=== PATIENT | male | born 1970 | race Caucasian/White ===

== ENCOUNTER 2019-07-16 14:31 | Inpatient (IN) | payer OTHER ==
--- NOTE | 2019-07-16 14:47 | BHS.RME ---
Physical/Psych/Mental Status - Behavior General Behavior: Increased activity (restlessness, agitation) Eye Contact: Normal - Cooperativeness Cooperativeness: Cooperative - Thinking Thought Processes: Tight, Logical, Goal Directed Thought content: Future oriented - Physical Health Problems Is patient presently having any pain?: No Does patient presently have any injuries (include location): No Does patient currently have a fever: No Is patient : No COWS - Scale Resting Pulse: 1= [place] 81-100 Sweatin= Chills/Flushing Restless Observation: 1= Difficult to Sit Still Pupil Size: 1= Pupils >than Normal Bone or Joint Aches: 0= None Runny Nose/ Eye Tearin= None GI Upset > 30mins: 1= Stomach Cramp Tremor Observation: 1= Tremor [place], Not Seen Yawning Observation: 0= None Anxiety or Irritability: 0= None Goose Flesh Skin: 0=Smooth Skin (not yet in withdrawal due to use earlier this morning.) COWS Score: 6
--- NOTE | 2019-07-16 15:03 | HP ---
COWS - Scale Resting Pulse: 1= [place] 81-100 Sweatin= Chills/Flushing Restless Observation: 1= Difficult to Sit Still Pupil Size: 1= Pupils >than Normal Bone or Joint Aches: 0= None Runny Nose/ Eye Tearin= None GI Upset > 30mins: 1= Stomach Cramp Tremor Observation: 1= Tremor [place], Not Seen Yawning Observation: 0= None Anxiety or Irritability: 0= None Goose Flesh Skin: 0=Smooth Skin (not yet in withdrawal due to use earlier this morning.) COWS Score: 6 CIWA Score - Admission Criteria OASAS Guidelines: Admission for Medically Managed Detox: Requires at least one of the followin. CIWA greater than 12 2. Seizures within the past 24 hours 3. Delirium tremens within the past 24 hours 4. Hallucinations within the past 24 hours 5. Acute intervention needed for co occurring medical disorder 6. Acute intervention needed for co occurring psychiatric disorder 7. Severe withdrawal that cannot be handled at a lower level of care (continued vomiting, continued diarrhea, abnormal vital signs) requiring intravenous medication and/or fluids 8. Admitting History and Physical - Admission Chief Complaint: Mr. Fleming is a 48 yo gentleman who presents to [facility] stating "I've been shooting heroin and I'm trying to get off it". He is requesting admission for detox. History of Present Illness: Mr. Fleming is a 48 yo gentleman who presents to [facility] stating "I've been shooting heroin and I'm trying to get off it". He is requesting admission for detox. His last detox was in 2014 when he was incarcerated. He has been on methadone recently, in [place], off since March. Prior Suboxone, none in 2 years. PMH: GERD PSH: left inguinal hernia, 2 esophageal tears 2011, ankle fracture right 2004 psych: attempted suicide in 2004, no SI at this time Legal: none Substance use hx Heroin: one bundle per day, IV, first use age 30 yo, last use 07/15 at 2 am. No hx of OD, No Narcan at home. Nicotine: 1/2 ppd, began at age 20y. Cocaine: $30, IV, first use age 19y, last use a few days ago Admission ROS S - HPI Exam Limitations: No Limitations - Ebola screening Have you traveled outside of the country in the last 21 days: No Have you had contact with anyone from an Ebola affected area: No Have you been sick,other than usual withdrawal symptoms: No Do you have a fever: No - Review of Systems Constitutional: Unintentional Wgt. Loss (lost 5 lbs in 2 weeks) EENT: reports: Blurred Vision (has glasses with him) Respiratory: reports: No Symptoms reported Cardiac: reports: No Symptoms Reported GI: reports: Other (hx GERD, recent diarrhea he attributes to Suboxone) : reports: No Symptoms Reported Musculoskeletal: reports: No Symptoms Reported Integumentary: reports: Dryness Neuro: reports: No Symptoms reported Endocrine: reports: No Symptoms Reported Hematology: reports: No Symptoms Reported Psychiatric: reports: Depressed (no SI) Patient History - Patient Medical History Hx Gastrointestinal Disorders: Yes (GERD) - Patient Surgical History Hx Abdominal Surgery: Yes (left inguinal hernia) Other Surgical History: 2 esophageal tears 2011 - Smoking Cessation Smoking history: Current every day smoker Have you smoked in the past 12 months: Yes Aproximately how many cigarettes per day: 10 Hx Chewing Tobacco Use: No Initiated information on smoking cessation: Yes 'Breaking Loose' booklet given: 07/16/19 - Substance & Tx. History Substance Use Type: Cocaine, Heroin Hx Substance Use Treatment: Yes - Substances abused Heroin Substance route: Injection Amount used: 10 bags Age of first use: 30 Date of last use: 07/16/19 Cocaine Substance route: Injection Frequency: 1-3 times last 30 days Amount used: $30. Age of first use: 19 Date of last use: 07/14/19 Admission Physical Exam S - Vital Signs Vital Signs: Vital Signs - 24 hr 07/16/19 14:54 Temperature 97.6 F Pulse Rate 94 H Respiratory 18 Rate Blood Pressure 135/84 - Physical General Appearance: Yes: Disheveled, Thin, Anxious HEENTM: Yes: Hearing grossly Normal, Normocephalic, Normal Voice Respiratory: Yes: Lungs Clear Neck: Yes: Within Normal Limits Breast: Yes: Breast Exam Deferred Cardiology: Yes: Regular Rate, S1, S2 Abdominal: Yes: Non Tender, Flat, Soft, Decreased BS Genitourinary: Yes: Other (deferred) Back: Yes: Normal Inspection Musculoskeletal: Yes: Within Normal Limits Extremities: Yes: Normal Inspection Neurological: Yes: Alert, Normal Response Integumentary: Yes: Rash (acne on back) Lymphatic: Yes: Within Normal Limits - Diagnostic (1) Opioid dependence with withdrawal Current Visit: Yes Status: Acute (2) Nicotine dependence Current Visit: Yes Status: Acute (3) GERD (gastroesophageal reflux disease) Current Visit: Yes Status: Chronic (4) Depression Current Visit: Yes Status: Chronic Cleared for Admission [facility] - Detox or Rehab [facility] Level of Care: Medically Managed Detox Regimen/Protocol: Methadone Breathalyzer - Breathalyzer Breathalyzer: 0 Urine Drug Screen - Results Urine drug screen results: JOE-Cocaine, FEN-Fentanyl, MOP-Opiates, BUP-Suboxone Inpatient Rehab Admission - Rehab Decision to Admit Inpatient rehab admission?: No
[2019-07-16 15:14] VITALS: BMI 25.0
[2019-07-16] MEDS ORDERED: ONDANSETRON *ODT* 4 MG TABLET SL ONE (15:16)
[2019-07-16] MEDS ORDERED: MAGNESIUM HYDROX 2400MG/30ML ORAL SUSPENSION 30 ML CUP PO PRN (15:16)
[2019-07-16] MEDS ORDERED: ACETAMINOPHEN 325 MG TABLET (FP) PO PRN ×2 (15:16)
[2019-07-16] MEDS ORDERED: BISMUTH SUBSALICYLATE 524 MG/30 ML UD PO PRN (15:16)
[2019-07-16] MEDS ORDERED: MAG HYDROX/AL HYDROX/SIMETH 30 ML UNIT-DOSE CUP PO PRN (15:16)
[2019-07-16] MEDS ORDERED: MAGNESIUM CITRATE 300 ML BOTTLE PO PRN (15:16)
[2019-07-16] MEDS ORDERED: METHADONE HCL 10 MG TABLET (FOR DETOX USE ONLY) PO ONE (15:16)
[2019-07-16] MEDS ORDERED: MENTHOL/PHENOL 1 EACH UD MM PRN (15:16)
[2019-07-16] MEDS: NICOTINE 14 MG/24 HOURS TOPICAL PATCH TD SCH (16:03)
--- NOTE | 2019-07-16 16:55 | CONSULT ---
[facility] Psychiatric Consult - Data Date of interview: 07/16/19 Admission source: [facility] Identifying data: First visit to [facility] and admission to [address] [place] [address] for detoxification treatment. SAVANNAH issues : heroin, cocaine, nicotine. Patient is single, a father of one, homeless, currently unemployed and deprived of financial support. Substance Abuse History: Discussed with the patient. SAVANNAH as follows : Smoking history: Current every day smoker. Have you smoked in the past 12 months: Yes. Aproximately how many cigarettes per day: 10. Hx Chewing Tobacco Use: No. Initiated information on smoking cessation: Yes. 'Breaking Loose' booklet given: 07/16/19. - Substance & Tx. History. Substance Use Type: Cocaine, Heroin. Hx Substance Use Treatment: Yes. - Substances abused. Heroin. Substance route: Injection. Amount used: 10 bags. Age of first use: 30. Date of last use: 07/16/19. Cocaine. Substance route: Injection. Frequency: 1-3 times last 30 days. Amount used: $30. Age of first use: 19. Date of last use: 07/14/19 Medical History: Medical profile is remarkable for GERD, antecedent of two esophageal tears and a history of surgeries (left inguinal herniorraphy + orthosurgery for fracture of right ankle in 2004). Psychiatric History: Patient denies history of psychiatric hospitalizations (only one CPEP visit at [facility] in 1999). Mr Fleming indicates that he has been diagnosed with ADHD and prescribed ritalin during his adolescence. Later in life, he did see psychiatrists who diagnosed him with MDD and Anxiety Disorder (was prescribed duloxetine). Patient admits to chronic non- adherence to medications. He endorses recent maintenance on methadone (130 mg/day) at a MMTP program in [place], [place] (dropped out in March 2019). Patient reports a distant history of suicide attempt via overdose with an hypnotic medication (2004). Physical/Sexual Abuse/Trauma History: Patient denies history of abuse. Current stressors : homelessness, lack of a support network, financial difficulties and opioid addiction. Additional Comment: Urine drug screen results: JOE-Cocaine, FEN-Fentanyl, MOP-Opiates, BUP-Suboxone. Noted. Mental Status Exam - Mental Status Exam Alert and Oriented to: Time, Place, Person Cognitive Function: Good Patient Appearance: Well Groomed Mood: Nervous, Withdrawn Affect: Mood Congruent, Constricted Patient Behavior: Fatigued, Appropriate, Cooperative Speech Pattern: Clear, Appropriate Voice Loudness: Normal Thought Process: Intact, Goal Oriented Thought Disorder: Not Present Hallucinations: Denies Suicidal Ideation: Denies Homicidal Ideation: Denies Insight/Judgement: Poor Sleep: Poorly, Difficulty falling asleep Appetite: Good Gait/Station: Normal Psychiatric Findings - Problem List ([place] 1, 2,3) (1) Opioid dependence with withdrawal Current Visit: Yes Status: Acute (2) Cocaine use disorder Current Visit: Yes Status: Chronic (3) Nicotine dependence Current Visit: Yes Status: Chronic (4) Substance induced mood disorder Current Visit: Yes Status: Chronic (5) History of attention deficit hyperactivity disorder (ADHD) Current Visit: Yes Status: Chronic Comment: As per self-report. Not on medications for several years (since adolescence). (6) History of depression Current Visit: Yes Status: Chronic Comment: Self-report. Has been prescribed duloxetine in the past. (7) Insomnia Current Visit: Yes Status: Chronic (8) Non-compliance Current Visit: Yes Status: Chronic Comment: Patient admits to chronic non- adherence to psychiatric OPD care. Dropped out of methadone maintenance. - Initial Treatment Plan Initial Treatment Plan: Psychoeducation. Sleep hygiene. Detoxification initiated. Support. MAT-opioid services discussed with the patient : he is receptive to teaching and willing to resume MMTP services. NA meetings. Groups. Observation.
[2019-07-16] MEDS: PANTOPRAZOLE 40 MG TABLET PO SCH (17:52)
[2019-07-16] MEDS: hydrOXYzine PAMOATE 25 MG CAPSULE (FP) PO SCH ×2 (17:52→22:12)
[2019-07-16] MEDS: THIAMINE HCL 100 MG TABLET (FP) PO SCH (22:12)
[2019-07-16] MEDS: MELATONIN 5 MG TABLETS PO SCH (22:12)
[2019-07-17] MEDS: IBUPROFEN 400 MG TABLET (FP) PO PRN ×3 (06:21→20:26)
[2019-07-17] MEDS: hydrOXYzine PAMOATE 25 MG CAPSULE (FP) PO SCH ×5 (06:22→22:11)
[2019-07-17] MEDS ORDERED: METHADONE HCL 10 MG TABLET (FOR DETOX USE ONLY) ONE (09:51)
[2019-07-17] MEDS ORDERED: METHADONE HCL 5 MG TABLET (FOR DETOX USE ONLY) ONE (09:52)
[2019-07-17] MEDS ORDERED: METHADONE (DETOX) 20 MG, METHADONE (DETOX) 5 MG PO ONE (10:00)
[2019-07-17] MEDS: PANTOPRAZOLE 40 MG TABLET PO SCH (10:12)
[2019-07-17] MEDS ORDERED: clonazePAM 0.5 MG TABLET PO PRN (10:15)
[2019-07-17] MEDS ORDERED: cloNIDine HCL 0.1 MG TABLET PO PRN (10:15)
[2019-07-17] MEDS: cloNIDine HCL 0.1 MG TABLET PO PRN ×3 (10:16→19:15)
[2019-07-17] MEDS: NICOTINE 14 MG/24 HOURS TOPICAL PATCH TD SCH (10:17)
[2019-07-17 10:27] LABS: HEMATOCRIT 39.4 % (35.4-49); HEMOGLOBIN 13.6 GM/dL (11.7-16.9); MCH 27.6 pg (25.7-33.7); MCHC 34.5 g/dl (32.0-35.9); MEAN PLT VOLUME 8.6 fl (7.5-11.1); PLATELET COUNT 224 K/MM3 (134-434); RBC 4.92 M/mm3 (4.00-5.60); RDW 13.5 % (11.9-15.9); WHITE BLOOD COUNT 5.1 K/mm3 (4.0-10.0)
--- NOTE | 2019-07-17 10:40 | PN ---
BHS COWS - Scale Resting Pulse: 1= [place] 81-100 Sweatin= Chills/Flushing Restless Observation: 1= Difficult to Sit Still Pupil Size: 0= Normal to Room Light Bone or Joint Aches: 1= Mild Discomfort Runny Nose/ Eye Tearin= Nasal Congestion GI Upset > 30mins: 1= Stomach Cramp Tremor Observation of Outstretched Hands: 1= Tremor [place], Not Seen Yawning Observation: 0= None BHS Progress Note (SOAP) Subjective: pt admitted yesterday for opiate use disorder for detox O: Vital Signs - 24 hr 07/16/19 07/16/19 07/16/19 14:54 15:08 15:57 Temperature 97.6 F 97.6 F 97.8 F Pulse Rate 94 H 94 H 69 Respiratory 18 18 18 Rate Blood Pressure 135/84 135/84 121/78 O2 Sat by Pulse Oximetry (%) 07/16/19 07/16/19 07/16/19 15:58 16:50 20:40 Temperature 98.3 F 97.3 F L Pulse Rate 96 H 85 Respiratory 18 16 Rate Blood Pressure 131/74 115/65 O2 Sat by Pulse 96 98 Oximetry (%) 07/17/19 07/17/19 07/17/19 00:40 06:18 08:33 Temperature 97.2 F L 97.0 F L Pulse Rate 77 77 Respiratory 18 16 18 Rate Blood Pressure 117/67 129/77 O2 Sat by Pulse 99 Oximetry (%) Laboratory Tests 07/17/19 07:15 WBC 5.1 RBC 4.92 Hgb 13.6 Hct 39.4 MCV 80.0 MCH 27.6 MCHC 34.5 RDW 13.5 Plt Count 224 MPV 8.6 a/p: OUD- continue methadone detox protocol- 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
[2019-07-17 11:04] LABS: ALBUMIN 3.2 g/dl (3.4-5.0); BILIRUBIN,TOTAL 0.3 mg/dL (0.2-1); CALCIUM 8.8 mg/dL (8.5-10.1); CREATININE 0.9 mg/dL (0.55-1.3); TOT PROT 6.7 g/dl (6.4-8.2)
[2019-07-17] MEDS: PRENATAL VITAMINS W/ FOLIC ACID TABLET (FP) PO SCH (11:11)
[2019-07-17] MEDS: clonazePAM 0.5 MG TABLET PO PRN ×2 (17:24→22:12)
[2019-07-17] MEDS: THIAMINE HCL 100 MG TABLET (FP) PO SCH (22:11)
[2019-07-17] MEDS: MELATONIN 5 MG TABLETS PO SCH (22:11)
[2019-07-18] MEDS: cloNIDine HCL 0.1 MG TABLET PO PRN ×6 (00:28→21:37)
[2019-07-18] MEDS: clonazePAM 0.5 MG TABLET PO PRN ×5 (04:47→21:37)
[2019-07-18] MEDS: hydrOXYzine PAMOATE 25 MG CAPSULE (FP) PO SCH ×5 (06:45→21:36)
[2019-07-18] MEDS: IBUPROFEN 400 MG TABLET (FP) PO PRN (06:46)
[2019-07-18] MEDS: PANTOPRAZOLE 40 MG TABLET PO SCH (09:08)
[2019-07-18] MEDS: NICOTINE POLACRILEX 2 MG GUM BUC PRN (09:09)
[2019-07-18] MEDS: NICOTINE 14 MG/24 HOURS TOPICAL PATCH TD SCH (09:09)
[2019-07-18] MEDS: PRENATAL VITAMINS W/ FOLIC ACID TABLET (FP) PO SCH (09:09)
[2019-07-18] MEDS ORDERED: METHADONE HCL 10 MG TABLET (FOR DETOX USE ONLY) PO ONE (10:00)
--- NOTE | 2019-07-18 11:03 | PN ---
BHS COWS - Scale Resting Pulse: 1= [place] 81-100 Sweatin= Chills/Flushing Restless Observation: 0= Sits Still Pupil Size: 1= Pupils >than Normal Bone or Joint Aches: 1= Mild Discomfort Runny Nose/ Eye Tearin= None GI Upset > 30mins: 1= Stomach Cramp Tremor Observation of Outstretched Hands: 1= Tremor [place], Not Seen Yawning Observation: 0= None Anxiety or Irritability: 1=Feels Anxious/Irritable Goose Flesh Skin: 3=Piloerection COWS Score: 10 BHS Progress Note (SOAP) Subjective: 48 years old male admitted on 07/16/19 for opiate withdrawal sx management treating with methadone detox regiment observed sitting on the edge of the bed eating breakfast tolerated food and fluid well reports was in methadone program 3 months ago and prefers to return to the program patient has appoint ment 07/21/19 7-730 am Objective: 07/18/19 11:02 Vital Signs Temperature 97.2 F L 07/18/19 08:40 Pulse Rate 91 H 07/18/19 08:40 Respiratory Rate 18 07/18/19 08:40 Blood Pressure 119/71 07/18/19 08:40 O2 Sat by Pulse Oximetry (%) 100 07/18/19 06:30 Laboratory Last Values WBC 5.1 K/mm3 (4.0-10.0) 07/17/19 07:15 RBC 4.92 M/mm3 (4.00-5.60) 07/17/19 07:15 Hgb 13.6 GM/dL (11.7-16.9) 07/17/19 07:15 Hct 39.4 % (35.4-49) 07/17/19 07:15 MCV 80.0 fl (80-96) 07/17/19 07:15 MCH 27.6 pg (25.7-33.7) 07/17/19 07:15 MCHC 34.5 g/dl (32.0-35.9) 07/17/19 07:15 RDW 13.5 % (11.9-15.9) 07/17/19 07:15 Plt Count 224 K/MM3 (134-434) 07/17/19 07:15 MPV 8.6 fl (7.5-11.1) 07/17/19 07:15 Sodium 140 mmol/L (136-145) 07/17/19 07:15 Potassium 4.0 mmol/L (3.5-5.1) 07/17/19 07:15 Chloride 105 mmol/L (98-107) 07/17/19 07:15 Carbon Dioxide 29 mmol/L (21-32) 07/17/19 07:15 Anion Gap 6 MMOL/L (8-16) L 07/17/19 07:15 BUN 14.0 mg/dL (7-18) 07/17/19 07:15 Creatinine 0.9 mg/dL (0.55-1.3) 07/17/19 07:15 Est GFR (CKD-EPI)AfAm 115.83 07/17/19 07:15 Est GFR (CKD-EPI)NonAf 99.94 07/17/19 07:15 Random Glucose 96 mg/dL (74-106) 07/17/19 07:15 Calcium 8.8 mg/dL (8.5-10.1) 07/17/19 07:15 Total Bilirubin 0.3 mg/dL (0.2-1) 07/17/19 07:15 AST 15 U/L (15-37) 07/17/19 07:15 ALT 22 U/L (13-61) 07/17/19 07:15 Alkaline Phosphatase 75 U/L (45-117) 07/17/19 07:15 Total Protein 6.7 g/dl (6.4-8.2) 07/17/19 07:15 Albumin 3.2 g/dl (3.4-5.0) L 07/17/19 07:15 Syphilis Serology Non-reactive (NONREACTIVE) 07/17/19 07:15 HIV Ag/Ab Combo Qual Negative (NEGATIVE) 07/17/19 07:15 lab noted Assessment: 07/18/19 11:02 opiate withdrawal Plan: methadone regiment
[2019-07-18] MEDS: THIAMINE HCL 100 MG TABLET (FP) PO SCH (21:36)
[2019-07-18] MEDS: MELATONIN 5 MG TABLETS PO SCH (21:36)
[2019-07-19] MEDS: clonazePAM 0.5 MG TABLET PO PRN ×5 (05:57→23:02)
[2019-07-19] MEDS: hydrOXYzine PAMOATE 25 MG CAPSULE (FP) PO SCH ×5 (05:57→22:02)
[2019-07-19] MEDS: IBUPROFEN 400 MG TABLET (FP) PO PRN ×3 (05:58→21:59)
[2019-07-19] MEDS: NICOTINE POLACRILEX 2 MG GUM BUC PRN (06:01)
[2019-07-19] MEDS ORDERED: METHADONE HCL 10 MG TABLET (FOR DETOX USE ONLY) ONE (09:03)
[2019-07-19] MEDS ORDERED: METHADONE HCL 5 MG TABLET (FOR DETOX USE ONLY) ONE (09:04)
[2019-07-19] MEDS ORDERED: TRIMETHOBENZAMIDE HCL 300 MG CAPSULE PO PRN (09:36)
--- NOTE | 2019-07-19 09:37 | PN ---
BHS COWS - Scale Resting Pulse: 1= [place] 81-100 Sweatin= Chills/Flushing Restless Observation: 1= Difficult to Sit Still Pupil Size: 0= Normal to Room Light Bone or Joint Aches: 1= Mild Discomfort Runny Nose/ Eye Tearin= None GI Upset > 30mins: 0= None Tremor Observation of Outstretched Hands: 1= Tremor [place], Not Seen Yawning Observation: 0= None Anxiety or Irritability: 2=Irritable/Anxious Goose Flesh Skin: 0=Smooth Skin COWS Score: 7 BHS Progress Note (SOAP) Subjective: body aches nausea interrupted sleep sweats Objective: 07/19/19 09:34 Vital Signs Temperature 97.1 F L 07/19/19 08:49 Pulse Rate 82 07/19/19 08:49 Respiratory Rate 18 07/19/19 08:49 Blood Pressure 123/79 07/19/19 08:49 O2 Sat by Pulse Oximetry (%) 95 07/19/19 06:21 Laboratory Tests 07/17/19 07/17/19 07/17/19 07:15 07:15 07:15 WBC RBC Hgb Hct MCV MCH MCHC RDW Plt Count MPV Sodium 140 Potassium 4.0 Chloride 105 Carbon Dioxide 29 Anion Gap 6 L BUN 14.0 Creatinine 0.9 Est GFR (CKD-EPI)AfAm 115.83 Est GFR (CKD-EPI)NonAf 99.94 Random Glucose 96 Calcium 8.8 Total Bilirubin 0.3 AST 15 ALT 22 Alkaline Phosphatase 75 Total Protein 6.7 Albumin 3.2 L Syphilis Serology Non-reactive HIV Ag/Ab Combo Qual Negative 07/17/19 07:15 WBC 5.1 RBC 4.92 Hgb 13.6 Hct 39.4 MCV 80.0 MCH 27.6 MCHC 34.5 RDW 13.5 Plt Count 224 MPV 8.6 Sodium Potassium Chloride Carbon Dioxide Anion Gap BUN Creatinine Est GFR (CKD-EPI)AfAm Est GFR (CKD-EPI)NonAf Random Glucose Calcium Total Bilirubin AST ALT Alkaline Phosphatase Total Protein Albumin Syphilis Serology HIV Ag/Ab Combo Qual aaox3 ambulating no acute distress Assessment: 07/19/19 09:35 withdrawals Plan: continue detox increase fluids motrin prn roboxin prn klonopin prn tigan po prn
[2019-07-19] MEDS ORDERED: METHADONE (DETOX) 10 MG, METHADONE (DETOX) 5 MG PO ONE (10:00)
[2019-07-19] MEDS: PANTOPRAZOLE 40 MG TABLET PO SCH (10:10)
[2019-07-19] MEDS: PRENATAL VITAMINS W/ FOLIC ACID TABLET (FP) PO SCH (10:11)
[2019-07-19] MEDS: NICOTINE 14 MG/24 HOURS TOPICAL PATCH TD SCH (10:41)
[2019-07-19] MEDS: METHOCARBAMOL 500 MG TABLET PO PRN ×2 (17:32→23:32)
[2019-07-19] MEDS: THIAMINE HCL 100 MG TABLET (FP) PO SCH (21:59)
[2019-07-19] MEDS: MELATONIN 5 MG TABLETS PO SCH (22:02)
[2019-07-20] MEDS: hydrOXYzine PAMOATE 25 MG CAPSULE (FP) PO SCH ×3 (05:35→14:00)
[2019-07-20] MEDS: IBUPROFEN 400 MG TABLET (FP) PO PRN (05:36)
[2019-07-20] MEDS: METHOCARBAMOL 500 MG TABLET PO PRN (05:36)
[2019-07-20 09:14] VITALS: TEMP 97.2
[2019-07-20] MEDS ORDERED: METHADONE HCL 10 MG TABLET (FOR DETOX USE ONLY) PO ONE (10:00)
[2019-07-20] MEDS: PRENATAL VITAMINS W/ FOLIC ACID TABLET (FP) PO SCH (10:03)
[2019-07-20] MEDS: PANTOPRAZOLE 40 MG TABLET PO SCH (10:03)
[2019-07-20] MEDS: NICOTINE 14 MG/24 HOURS TOPICAL PATCH TD SCH (10:04)
--- NOTE | 2019-07-20 10:06 | PN ---
BHS COWS - Scale Resting Pulse: 1= [place] 81-100 Sweatin= No chills or Flushing Restless Observation: 1= Difficult to Sit Still Pupil Size: 0= Normal to Room Light Bone or Joint Aches: 0= None Runny Nose/ Eye Tearin= None GI Upset > 30mins: 0= None Tremor Observation of Outstretched Hands: 1= Tremor [place], Not Seen Yawning Observation: 0= None Anxiety or Irritability: 1=Feels Anxious/Irritable Goose Flesh Skin: 0=Smooth Skin COWS Score: 4 BHS Progress Note (SOAP) Subjective: restless agitation Objective: 07/20/19 10:05 Vital Signs Temperature 97.2 F L 07/20/19 08:38 Pulse Rate 98 H 07/20/19 08:38 Respiratory Rate 20 07/20/19 08:38 Blood Pressure 138/96 07/20/19 08:38 O2 Sat by Pulse Oximetry (%) 97 07/20/19 06:19 Laboratory Tests 07/17/19 07/17/19 07/17/19 07:15 07:15 07:15 WBC RBC Hgb Hct MCV MCH MCHC RDW Plt Count MPV Sodium 140 Potassium 4.0 Chloride 105 Carbon Dioxide 29 Anion Gap 6 L BUN 14.0 Creatinine 0.9 Est GFR (CKD-EPI)AfAm 115.83 Est GFR (CKD-EPI)NonAf 99.94 Random Glucose 96 Calcium 8.8 Total Bilirubin 0.3 AST 15 ALT 22 Alkaline Phosphatase 75 Total Protein 6.7 Albumin 3.2 L Syphilis Serology Non-reactive HIV Ag/Ab Combo Qual Negative 07/17/19 07:15 WBC 5.1 RBC 4.92 Hgb 13.6 Hct 39.4 MCV 80.0 MCH 27.6 MCHC 34.5 RDW 13.5 Plt Count 224 MPV 8.6 Sodium Potassium Chloride Carbon Dioxide Anion Gap BUN Creatinine Est GFR (CKD-EPI)AfAm Est GFR (CKD-EPI)NonAf Random Glucose Calcium Total Bilirubin AST ALT Alkaline Phosphatase Total Protein Albumin Syphilis Serology HIV Ag/Ab Combo Qual aaox3 ambulating no acute distress Assessment: 07/20/19 10:05 withdrawals Plan: continue detox clonidine 0.1mg bid d/c in am
[2019-07-20] MEDS ORDERED: cloNIDine HCL 0.1 MG TABLET PO SCH (10:15)
--- NOTE | 2019-07-20 13:02 | PN ---
BHS Progress Note (SOAP) Subjective: feeling better Objective: 07/20/19 13:01 Vital Signs Temperature 97.2 F L 07/20/19 08:38 Pulse Rate 98 H 07/20/19 08:38 Respiratory Rate 20 07/20/19 08:38 Blood Pressure 138/96 07/20/19 08:38 O2 Sat by Pulse Oximetry (%) 97 07/20/19 06:19 aaox3 ambulating no acute distress Assessment: 07/20/19 13:02 no s/s of withdrawals Plan: planning to go to [facility] tomorrow. d/c to home today as per pt request.
--- NOTE | 2019-07-20 13:04 | DS ---
[facility] Detox Discharge Summary Admission Date: 07/16/19 Discharge Date: 07/20/19 - History Present History: Cocaine Dependence, Opioid Dependence - Physical Exam Results Vital Signs: Vital Signs Temperature 97.2 F L 07/20/19 08:38 Pulse Rate 98 H 07/20/19 08:38 Respiratory Rate 07/20/19 08:38 Blood Pressure 138/96 07/20/19 08:38 O2 Sat by Pulse Oximetry (%) 97 07/20/19 06:19 Pertinent Admission Physical Exam Findings: Vital Signs Temperature 97.2 F L 07/20/19 08:38 Pulse Rate 98 H 07/20/19 08:38 Respiratory Rate 07/20/19 08:38 Blood Pressure 138/96 07/20/19 08:38 O2 Sat by Pulse Oximetry (%) 97 07/20/19 06:19 Laboratory Tests 07/17/19 07/17/19 07/17/19 07:15 07:15 07:15 WBC RBC Hgb Hct MCV MCH MCHC RDW Plt Count MPV Sodium 140 Potassium 4.0 Chloride 105 Carbon Dioxide 29 Anion Gap 6 L BUN 14.0 Creatinine 0.9 Est GFR (CKD-EPI)AfAm 115.83 Est GFR (CKD-EPI)NonAf 99.94 Random Glucose 96 Calcium 8.8 Total Bilirubin 0.3 AST 15 ALT 22 Alkaline Phosphatase 75 Total Protein 6.7 Albumin 3.2 L Syphilis Serology Non-reactive HIV Ag/Ab Combo Qual Negative 07/17/19 07:15 WBC 5.1 RBC 4.92 Hgb 13.6 Hct 39.4 MCV 80.0 MCH 27.6 MCHC 34.5 RDW 13.5 Plt Count 224 MPV 8.6 Sodium Potassium Chloride Carbon Dioxide Anion Gap BUN Creatinine Est GFR (CKD-EPI)AfAm Est GFR (CKD-EPI)NonAf Random Glucose Calcium Total Bilirubin AST ALT Alkaline Phosphatase Total Protein Albumin Syphilis Serology HIV Ag/Ab Combo Qual aaox3 ambulating no acute distress lungs CTA - Treatment Hospital Course: Detox Protocol Followed, Detoxed Safely, Responded well, Discharged Condition Good, Rehab Referral Accepted - Medication Discharge Medications: Ambulatory Orders Duloxetine HCl [Cymbalta -] 30 mg PO DAILY 07/16/19 Pantoprazole Sodium [Protonix -] 40 mg PO DAILY 07/16/19 - Diagnosis (1) Opioid dependence with withdrawal Current Visit: Yes Status: Chronic (2) Cocaine use disorder Current Visit: Yes Status: Chronic (3) Depression Current Visit: Yes Status: Chronic (4) GERD (gastroesophageal reflux disease) Current Visit: Yes Status: Chronic Qualifiers: Esophagitis presence: without esophagitis Qualified Code(s): K21.9 - Gastro-esophageal reflux disease without esophagitis (5) History of attention deficit hyperactivity disorder (ADHD) Current Visit: Yes Status: Chronic (6) History of depression Current Visit: Yes Status: Chronic (7) Nicotine dependence Current Visit: Yes Status: Chronic Qualifiers: Nicotine product type: cigarettes Substance use status: uncomplicated Qualified Code(s): F17.210 - Nicotine dependence, cigarettes, uncomplicated (8) Non-compliance Current Visit: Yes Status: Chronic (9) Substance induced mood disorder Current Visit: Yes Status: Chronic - AMA Did Patient Leave Against Medical Advice: No
[2019-07-20 13:16] VITALS: BP 140/84; PULSE 100
[2019-07-21] MEDS ORDERED: METHADONE HCL 5 MG TABLET (FOR DETOX USE ONLY) PO ONE (06:00)
== END 2019-07-20 14:02 | disposition home or self-care (01) | DRG 773 ==
LOC: YASAS 14:31 → Y3N 15:18
PROVIDERS: ADMIT Allergy & Immunology; ATTEND Allergy & Immunology
PROC: HZ2ZZZZ Detoxification Services for Substance Abuse Treatment (ICD-10-PCS; principal; 2019-07-16)
DX: F11.23 Opioid dependence with withdrawal (principal); F14.20 Cocaine dependence, uncomplicated; F17.210 Nicotine dependence, cigarettes, uncomplicated; F19.24 Other psychoactive substance dependence with psychoactive substance-induced mood disorder; F32.9 Major depressive disorder, single episode, unspecified; F41.9 Anxiety disorder, unspecified; F90.9 Attention-deficit hyperactivity disorder, unspecified type; K21.9 Gastro-esophageal reflux disease without esophagitis; Z56.0 Unemployment, unspecified; Z59.0 Homelessness; Z91.19 Patient's noncompliance with other medical treatment and regimen; Z91.013 Allergy to seafood
CPT/HCPCS: 36415; 80053; 85027; 86780; 87389; J0735; Q0162